=== PATIENT | male | born 1960 | race Caucasian/White ===

== ENCOUNTER → 2019-03-29 16:47 | Outpatient (CLI) | payer MEDICAID, SELFPAY ==
[2019-03-29 15:26] VITALS: BMI 29.2
--- NOTE | 2019-03-29 17:00 | RAD_ITS ---
STUDY: X-RAY - LUMBAR SPINE REASON FOR EXAM: Male, 58 years old. Low back pain TECHNIQUE: 5 view(s) of the lumbar spine were obtained. COMPARISON: None FINDINGS: Normal alignment. No compression fracture. Multiple lateral and anterior osteophytes. Diffuse facet disease. Degenerative disc disease at the L3-4 and L5-S1 levels. Vascular calcifications. RAD/L/S Spine Min 4 Views IMPRESSION: Degenerative changes as described. No compression deformity. Electronically Signed: Domingo Hancock MD at 20:03 EDT Tel , Service support ,
== END ==
PROVIDERS: Family Provider Internal Medicine; PCP Internal Medicine; Referring Provider Internal Medicine; Visit Provider Internal Medicine
DX: M54.9 Dorsalgia, unspecified (principal)
CPT/HCPCS: 72110